=== PATIENT | female | born 1965 | race Caucasian/White ===

== ENCOUNTER 2017-03-04 06:06 | Day surgery (SDC) | payer BC, OTHER ==
[~2017-03-04] VITALS: Ht 154.9 cm; Wt 60.3 kg
[~2017-03-04 06:06] MED LIST: FLONASE 0.05%50 MCG NASAL; SINGULAIR 10 MG10 M1 PO; XYZAL5 MG PO; ZANTAC 150MG T150 MG PO
[2017-03-04 14:28] VITALS: BP 149/85
[2017-03-04 17:29] VITALS: BP 149/85
== END 2017-03-04 18:15 | disposition home or self-care (01) ==
LOC: OR 06:06 → TBA 06:07 → OR 11:08
DX: S52.592A Other fractures of lower end of left radius, initial encounter for closed fracture (principal); S52.692A Other fracture of lower end of left ulna, initial encounter for closed fracture; X58.XXXA Exposure to other specified factors, initial encounter; Y93.89 Activity, other specified; Y92.89 Other specified places as the place of occurrence of the external cause; Y99.8 Other external cause status; K21.9 Gastro-esophageal reflux disease without esophagitis; Z98.890 Other specified postprocedural states; Z79.899 Other long term (current) drug therapy; Z91.09 Other allergy status, other than to drugs and biological substances
CPT/HCPCS: 50010; 50101; 50386; 51736; 55430; 56525; 56527; 57091; 62110; 62900; 70005